=== PATIENT | female | born 1975 | race Two or more races ===

== ENCOUNTER 2016-12-31 23:37 | Inpatient (IN) | payer BC ==
[2017-01-01 01:06] LABS: Hematocrit 30 % (35-47); Hemoglobin 9.6 g/dl (12.0-16.0); Mean Corpuscular HGB Conc 32 g/dl (31-36); Mean Corpuscular Hemoglobin 24 pg (27-31); Mean Corpuscular Volume 75 fL (80-97); Mean Platelet Volume 9 um3 (7.4-10.4); Red Blood Count 3.96 10^6/ul (4.0-5.4); Red Cell Distribution Width 16 % (10.5-15); White Blood Count 13.6 10^3/ul (3.5-10.8)
[2017-01-01 01:07] LABS: Comments Flag Yes
[2017-01-01 01:11] LABS: Urine Bilirubin Negative (Negative); Urine Glucose Negative (Negative); Urine Nitrite Negative (Negative)
[2017-01-01 01:20] LABS: Albumin 3.3 g/dL (3.2-5.2); BUN/Creatinine Ratio 13.2 (8-20); EGFR African American 123.2 (>60); EGFR Non-African American 95.8 (>60); Globulin 3.5 g/dL (2-4); Potassium 4.1 mmol/L (3.5-5.0); Total Bilirubin 0.3 mg/dL (0.2-1.0); Total Protein 6.8 g/dL (6.4-8.9)
[2017-01-01] MEDS ORDERED: Sodium Citrate/Citric Acid* 15 ML UDC PO ONE (06:38)
[2017-01-01] MEDS ORDERED: ceFOXitin 2 GM IVPREMIX* 2 GM/50 ML BAG IVPB ONE (06:38)
[2017-01-01] MEDS ORDERED: Sodium Citrate/Citric Acid* 15 ML UDC ONE (06:54)
[2017-01-01] MEDS ORDERED: ceFOXitin 2 GM IVPREMIX* 2 GM/50 ML BAG ONE (06:54)
[2017-01-01] MEDS ORDERED: Morphine PF AMP (0.5MG/ML)* 5 MG/10 ML AMP ONE (07:22)
[2017-01-01] MEDS ORDERED: OXYTOCIN* 10 UNITS/ML 1 ML VIAL ONE (08:06)
[2017-01-01] MEDS ORDERED: Naloxone* 0.4 MG/ML 1 ML VIAL IV PRN (08:40)
[2017-01-01] MEDS ORDERED: Nalbuphine* 20 MG/ML 1 ML VIAL IV PRN (08:40)
[2017-01-01] MEDS ORDERED: Ondansetron INJ* 2 MG/ML VIAL IV PRN (08:40)
[2017-01-01] MEDS ORDERED: fentaNYL* 50 MCG/ML 2 ML VIAL (100 MCG VIAL) IV PRN (08:43)
[2017-01-01] MEDS ORDERED: EPHEDrine (Pressors)* 50 MG/ML VIAL ONE (08:48)
[2017-01-01] MEDS ORDERED: Acetaminophen TAB* 325 MG PO PRN (09:03)
[2017-01-01] MEDS ORDERED: OXYTOCIN* 10 UNITS/ML 1 ML VIAL IM ONE (09:03)
[2017-01-01] MEDS ORDERED: Witch Hazel PAD* JAR TOPICAL PRN (09:03)
[2017-01-01] MEDS ORDERED: Dibucaine 1% 28.35 GM TUBE PR PRN (09:03)
[2017-01-01] MEDS ORDERED: Glycerin ADULT SUPP PR PRN (09:03)
[2017-01-01] MEDS ORDERED: Zolpidem TAB* 5 MG PO PRN (09:03)
[2017-01-01] MEDS ORDERED: Tetan/Diph/Pertus SYR(Tdap)* 0.5 ML SYR(BOOSTRIX) use SYR IM ONE (10:00)
[2017-01-01] MEDS: Docusate CAP* 100 MG PO SCH ×2 (12:44→20:23)
[2017-01-01] MEDS: Simethicone CHEW TAB* 80 MG PO SCH ×3 (12:44→21:42)
[2017-01-01] MEDS: oxyCODONE/Acetamin 5/325 MG* TAB PO PRN ×2 (16:01→20:24)
[2017-01-02] MEDS: oxyCODONE/Acetamin 5/325 MG* TAB PO PRN ×6 (00:51→21:19)
--- NOTE | 2017-01-02 02:50 | OP ---
DATE OF OPERATION: 01/01/17 - ROOM #[id number]-117 DATE OF : 77 SURGEON: Dr. Morrison. HAND STRIPER SURGEON: Dr. Anthony. ANESTHESIOLOGIST: Mathieu Broderick DO ANESTHESIA: Spinal. PRE-OP DIAGNOSES: 1. Intrauterine at 39 weeks. 2. Hypertension. 3. Oligohydramnios. POST-OP DIAGNOSES: 1. Intrauterine at 39 weeks. 2. Hypertension. 3. Oligohydramnios. OPERATIVE PROCEDURE: Repeat low-traverse section. ESTIMATED BLOOD LOSS: 600 cc. URINE OUTPUT: 200 cc of clear urine. FLUIDS: She received 1700 cc of IV crystalloid fluids. FINDINGS: Delivery of a viable female infant with a weight of 8 pounds 1 ounce. Nuchal cord x1. Clear fluid. Placenta grossly intact with a 3-vessel cord noted. Uterus, adnexa, bowel and bladder were within normal limits. There were no complications. DESCRIPTION OF PROCEDURE: The patient was taken to the operating room where she was identified. She was placed on the operating room table where a spinal anesthetic was obtained without difficulty. She was placed in the supine position with a leftward tilt, prepped and dapped in a normal sterile fashion. A Pfannenstiel skin incision was made with a knife and carried through to the underlying layer of fascia. The fascia was nicked in the midline and extended laterally with curved Ly scissors. The fascia was then grasped superiorly and inferiorly with Albino clamps and dissected off sharply from the rectus muscle. The rectus muscle was in the midline bluntly. The peritoneum was identified, grasped with pickups, entered sharply with Metzenbaum scissors, and extended superiorly and inferiorly. A bladder blade was inserted into the patient's abdomen. A bladder flap was created using Metzenbaum scissors over which the bladder blade was then reinserted. A low-transverse incision was made with a knife, extended laterally with bandage scissors. Amniotic fluid was noted to be clear. The 's head was then grasped and delivered with vacuum assistance atraumatically. The nose and mouth were suctioned. The rest of the 's body was then delivered. The cord was clamped and cut. The infant was handed off to the awaiting boat engines installer. Cord bloods were obtained. The placenta was removed manually. The uterus was then exteriorized, cleared off all clot and debris using moist laparotomy sponges. The uterine incision was closed using 0 Polysorb suture in a running locked fashion with a second imbricating layer of 0 Polysorb suture. 10 units of Pitocin was injected into the uterine muscle for relief of atony. At this point, the uterus was returned to the patient's abdomen. The gutters were then cleared of all clots and debris using moist laparotomy sponges. All the sponges were removed from the patient's abdomen. The peritoneum was then closed using 3-0 Polysorb suture in a running fashion. The fascia was closed using 0 Polysorb suture in a running fashion. The skin was closed with 4-0 Monocryl in a subcuticular stitch. The patient tolerated the procedure well. Sponge, lap, needle counts were correct x2. She was then transferred to the recovery room area in stable condition. CC: Dr. Anthony.* [id number]/CPS #: [id number]
[2017-01-02 07:30] LABS: Hematocrit 23 % (35-47); Hemoglobin 7.2 g/dl (12.0-16.0); Mean Corpuscular HGB Conc 32 g/dl (31-36); Mean Corpuscular Hemoglobin 24 pg (27-31); Mean Corpuscular Volume 75 fL (80-97); Mean Platelet Volume 8 um3 (7.4-10.4); Red Blood Count 3.03 10^6/ul (4.0-5.4); Red Cell Distribution Width 16 % (10.5-15)
[2017-01-02] MEDS: Simethicone CHEW TAB* 80 MG PO SCH ×4 (09:18→21:19)
[2017-01-02] MEDS: Docusate CAP* 100 MG PO SCH ×3 (09:18→21:19)
[2017-01-02] MEDS: Ferrous Gluconate TAB* 324 MG TAB PO SCH ×2 (09:41→21:18)
[2017-01-03] MEDS: oxyCODONE/Acetamin 5/325 MG* TAB PO PRN ×6 (01:04→22:32)
[2017-01-03] MEDS: Simethicone CHEW TAB* 80 MG PO SCH ×4 (08:34→20:48)
[2017-01-03] MEDS: Ferrous Gluconate TAB* 324 MG TAB PO SCH ×2 (08:34→20:48)
[2017-01-03] MEDS: Docusate CAP* 100 MG PO SCH ×3 (08:34→20:48)
[2017-01-03] MEDS: Labetalol TAB* 100 MG PO SCH (20:48)
[2017-01-03] MEDS: Ascorbic Acid TAB* 500 MG PO SCH (21:19)
[2017-01-04] MEDS: oxyCODONE/Acetamin 5/325 MG* TAB PO PRN ×5 (06:40→23:15)
[2017-01-04] MEDS: Docusate CAP* 100 MG PO SCH ×3 (08:43→21:40)
[2017-01-04] MEDS: Labetalol TAB* 100 MG PO SCH ×2 (08:43→21:40)
[2017-01-04] MEDS: Simethicone CHEW TAB* 80 MG PO SCH ×4 (08:43→21:40)
[2017-01-04] MEDS: Ferrous Gluconate TAB* 324 MG TAB PO SCH ×2 (08:44→21:40)
[2017-01-04] MEDS: Ascorbic Acid TAB* 500 MG PO SCH ×2 (09:16→21:53)
[2017-01-05] MEDS: oxyCODONE/Acetamin 5/325 MG* TAB PO PRN ×2 (03:18→07:30)
[2017-01-05] MEDS: Docusate CAP* 100 MG PO SCH (08:12)
[2017-01-05] MEDS: Ferrous Gluconate TAB* 324 MG TAB PO SCH (08:12)
[2017-01-05] MEDS: Labetalol TAB* 100 MG PO SCH (08:12)
[2017-01-05] MEDS: Ascorbic Acid TAB* 500 MG PO SCH (08:13)
[2017-01-05] MEDS: Simethicone CHEW TAB* 80 MG PO SCH (08:13)
[2017-01-05 08:14] VITALS: BP 144/76
== END 2017-01-05 08:14 | disposition home or self-care (01) | DRG 540 ==
LOC: MCHOBOUT 23:37 → MCHOB 01-01 06:36
PROVIDERS: ADMIT Obstetrics & Gynecology; ATTEND Obstetrics & Gynecology
PROC: 10D00Z1 Extraction of Products of Conception, Low, Open Approach (ICD-10-PCS; 2017-01-01)
PROC: 4A1HXCZ Monitoring of Products of Conception, Cardiac Rate, External Approach (ICD-10-PCS; 2017-01-01)
PROC: 10907ZC Drainage of Amniotic Fluid, Therapeutic from Products of Conception, Via Natural or Artificial Opening (ICD-10-PCS; principal; 2017-01-01 07:30)
DX: O34.211 Maternal care for low transverse scar from previous cesarean delivery (principal); O41.03X0 Oligohydramnios, third trimester, not applicable or unspecified; O69.81X0 Labor and delivery complicated by cord around neck, without compression, not applicable or unspecified; O16.4 Unspecified maternal hypertension, complicating childbirth; O90.81 Anemia of the puerperium; Z3A.39 39 weeks gestation of pregnancy; Z37.0 Single live birth; O09.523 Supervision of elderly multigravida, third trimester; Z88.2 Allergy status to sulfonamides
CPT/HCPCS: 36415; 76815; 80053; 81003; 85025; 85027; 86850; 86900; 86901; A9270-GY; J0694; J2590

== ENCOUNTER 2018-05-17 09:54 | Emergency (ER) | payer BC ==
--- NOTE | 2018-05-17 10:23 | ED ---
Lower Extremity - HPI Summary HPI Summary: This is roman Nickerson documenting for attending Beau Mcallister MD. This patient is a 42 year old F presenting to [facility] with a chief complaint of right ankle injury that occurred this morning. Pt was in her OBs office hallway when she fell and twisted her right ankle. Pt fell to the floor and scraped her left knee. Pt was able to bear her own weight with some pain directly following the fall. The patient rates the pain 5/10 in severity. Symptoms aggravated by movement. Symptoms alleviated by resting the ankle. Patient reports left knee abrasion. Patient denies problems bearing her own weight. Pt is 3 months with no current complications. - History of Current Complaint Chief Complaint: EDExtremityLower Stated Complaint: FALL/RT ANKLE INJURY Time Seen by Provider: 05/17/18 10:11 Hx Obtained From: Patient Hx Last Menstrual Period: less than a month a go. Mechanism Of Injury: Fall From A Standing Position Onset of Pain: Immediate Onset/Duration: Hours - this morning Severity Initially: Moderate Severity Currently: Moderate Pain Intensity: 5 Pain Scale Used: 0-10 Numeric Timing: Constant Location: Is Discrete @ - right ankle Character Of Pain: Sharp Associated Signs And Symptoms: Positive: Swelling - minimal, Knee Pain - left knee abrasion. Negative: Bruising Aggravating Factor(s): Ambulation, Movement, Weight Bearing - Allergies/Home Medications Allergies/Adverse Reactions: Allergies Allergy/AdvReac Type Severity Reaction Status Date / Time Sulfa (Sulfonamide Allergy Rash Verified 05/17/18 10:12 Antibiotics) Home Medications: Home Medications Labetalol TAB* [Trandate TAB*] 200 mg PO BID 05/17/18 [History Confirmed ] PMH/Surg Hx/FS Hx/Imm Hx Endocrine/Hematology History: Reports: Hx Thyroid Disease - Hypothyroid per Dr Barclay Denies: Hx Diabetes Cardiovascular History: Reports: Hx Hypertension - on labetalol Respiratory History: Denies: Hx Asthma, Hx Chronic Obstructive Pulmonary Disease (COPD) GI History: Denies: Hx Ulcer History: Reports: Other Problems/Disorders - vulvar lichen sclerosis, ureteral reflux, ureteral surgery - Surgical History Surgery Procedure, Year, and Place: Ureter surgery 1999, stretched and lowere ureters in bladder, C [id number] - Immunization History Immunizations Up to Date: Yes Infectious Disease History: No Infectious Disease History: Denies: Hx Clostridium Difficile, Hx Hepatitis, Hx Human Immunodeficiency Virus (HIV), Hx of Known/Suspected MRSA, Hx Shingles, Hx Tuberculosis, Hx Known/ Suspected VRE, Hx Known/Suspected VRSA, History Other Infectious Disease, Traveled Outside the [place] in Last 30 Days - Family History Known Family History: Positive: Cardiac Disease, Hypertension, Diabetes - Social History Alcohol Use: None Substance Use Type: Reports: None Smoking Status (MU): Former Smoker Review of Systems Negative: Fever Positive: Edema - minimal, rt knee, Other - right ankle pain Positive: Other - abrasion left knee Negative: Slurred Speech All Other Systems Reviewed And Are Negative: Yes Physical Exam - Summary Physical Exam Summary: Appearance: Well-appearing, Well-nourished, lying in bed comfortable Skin: Warm, dry, no obvious rash. No ecchymosis. Eyes: sclera anicteric, no conjunctival pallor. ENT: mucous membranes moist Neck: deferred Respiratory: No signs of respiratory distress Cardiovascular: Appears well perfused, pulses are nml Abdomen: deferred Right ankle: no malleoli tenderness. No tenderness 5th metatarsal. Mild tenderness to the anterior ankle ligaments. Minimal swelling. Musculoskeletal: Left knee small abrasion. Neurological: Awake and alert, mentation is normal, speech is fluent and appropriate Psychiatric: affect is normal, does not appear anxious or depressed Triage Information Reviewed: Yes Vital Signs On Initial Exam: Initial Vitals Temp Pulse Resp BP Pulse Ox 98.3 F 78 18 143/99 98 05/17/18 09:57 05/17/18 09:57 05/17/18 09:57 05/17/18 09:57 05/17/18 09:57 Vital Signs Reviewed: Yes Diagnostics - Vital Signs Vital Signs Temp Pulse Resp BP Pulse Ox 05/17/18 09:57 98.3 F 78 18 143/99 98 - Laboratory Lab Statement: Any lab studies that have been ordered have been reviewed, and results considered in the medical decision making process. Lower Extremity Course/Dx - Course Course Of Treatment: This is a 42-year-old multiparous woman at approximately 12 weeks gestation who stumbled and fell, injuring the right ankle and left knee. The left knee injury is very small, just a small abrasion area the patient is able to bear weight and passes [place] ankle rules for avoiding imaging. Given that she is I would like to try to avoid imaging in this situation and explained all this to the patient, and she is in agreement. - Diagnoses Provider Diagnoses: Right ankle sprain, Abrasion of left knee Discharge - Sign-Out/Discharge Documenting (check all that apply): Patient Departure - Discharge Plan Condition: Good Disposition: HOME Patient Education Materials: Ankle Sprain (ED) Referrals: Lorene Moralez MD [Primary Care Provider] - Sofia Castano MD [Medical Doctor] - If Needed - Billing Disposition and Condition Condition: GOOD Disposition: Home
[2018-05-17 11:05] VITALS: BP 128/88
== END 2018-05-17 11:04 | disposition home or self-care (01) ==
LOC: ED 09:54
DX: O9A.211 Injury, poisoning and certain other consequences of external causes complicating pregnancy, first trimester (principal); S93.401A Sprain of unspecified ligament of right ankle, initial encounter; S80.212A Abrasion, left knee, initial encounter; X50.1XXA Overexertion from prolonged static or awkward postures, initial encounter; W19.XXXA Unspecified fall, initial encounter; Y92.531 Health care provider office as the place of occurrence of the external cause; O16.1 Unspecified maternal hypertension, first trimester; Z3A.12 12 weeks gestation of pregnancy; Z79.899 Other long term (current) drug therapy; Z87.891 Personal history of nicotine dependence; Z88.2 Allergy status to sulfonamides
CPT/HCPCS: 99282

== ENCOUNTER 2018-10-14 10:21 | Emergency (ER) | payer BC ==
--- NOTE | 2018-10-14 12:39 | ED ---
Throat Pain/Nasal Congestion - HPI Summary HPI Summary: Patient is a 42-year-old female presenting to the ED with left lower jaw pain and swelling. She denies any fevers, sweats, chills. She states she has been immunocompromised as she has had IV antibiotics over the past several weeks due to a abdominal infection. She has not been on these antibiotics for at least 2 weeks. She states she has had this lower jaw pain times approximately 1 week with minor medicine swelling. Endorses odynophagia dysphagia, however is able to eat and drink well. She is also endorsing some RUQ pain which is very mild rating it a 1/10, and intermittent since arrival to the ED. Denies any nausea, vomiting, diarrhea. She has had multiple UTIs in the past and also would like a urinalysis today. - History of Current Complaint Chief Complaint: EDAbdPain Time Seen by Provider: 10/14/18 10:44 Hx Obtained From: Patient Onset/Duration: Sudden Onset Severity: Moderate Associated Signs And Symptoms: Positive: Dysphagia - Epiglottits Risk Factors Epiglottis Risk Factors: Negative - Allergies/Home Medications Allergies/Adverse Reactions: Allergies Allergy/AdvReac Type Severity Reaction Status Date / Time Sulfa (Sulfonamide Allergy Rash Verified 10/14/18 11:16 Antibiotics) PMH/Surg Hx/FS Hx/Imm Hx Previously Healthy: Yes Endocrine/Hematology History: Reports: Hx Thyroid Disease - Hypothyroid per Dr Barclay Denies: Hx Diabetes Cardiovascular History: Reports: Hx Hypertension - on labetalol Respiratory History: Denies: Hx Asthma, Hx Chronic Obstructive Pulmonary Disease (COPD) GI History: Denies: Hx Ulcer History: Reports: Other Problems/Disorders - vulvar lichen sclerosis, ureteral reflux, ureteral surgery - Surgical History Surgery Procedure, Year, and Place: Ureter surgery 1999, stretched and lowere ureters in bladder, C [id number] - Immunization History Hx Pertussis Vaccination: No Immunizations Up to Date: Yes Infectious Disease History: No Infectious Disease History: Denies: Hx Clostridium Difficile, Hx Hepatitis, Hx Human Immunodeficiency Virus (HIV), Hx of Known/Suspected MRSA, Hx Shingles, Hx Tuberculosis, Hx Known/ Suspected VRE, Hx Known/Suspected VRSA, History Other Infectious Disease, Traveled Outside the [place] in Last 30 Days - Family History Known Family History: Positive: Cardiac Disease, Hypertension, Diabetes - Social History Occupation: Unemployed Lives: With Family Alcohol Use: Weekly Alcohol Amount: 1/2 weekly Hx Substance Use: No Substance Use Type: Reports: None Hx Tobacco Use: Yes Smoking Status (MU): Former Smoker Review of Systems Constitutional: Negative Negative: Fever, Chills, Fatigue, Skin Diaphoresis Negative: Photophobia, Blurred Vision, Diplopia, Drainage Positive: Sore Throat, Ear Ache Negative: Palpitations, Chest Pain Negative: Shortness Of Breath, Cough Positive: Abdominal Pain. Negative: Vomiting, Diarrhea, Nausea Genitourinary: Negative Positive: no symptoms reported, see HPI Negative: Arthralgia, Myalgia Skin: Negative All Other Systems Reviewed And Are Negative: Yes Physical Exam Triage Information Reviewed: Yes Vital Signs On Initial Exam: Initial Vitals Temp Pulse Resp BP Pulse Ox 97.5 F 75 16 159/108 97 10/14/18 10:23 10/14/18 10:23 10/14/18 10:23 10/14/18 10:23 10/14/18 10:23 Vital Signs Reviewed: Yes Appearance: Positive: Well-Appearing, Well-Nourished Skin: Positive: Warm, Skin Color Reflects Adequate Perfusion Head/Face: Positive: Normal Head/Face Inspection Eyes: Positive: EOMI, MAGDA, Conjunctiva Clear ENT: Positive: Pharynx normal, TMs normal, Dental tenderness - left lower mandible, Uvula midline. Negative: Pharyngeal erythema, Nasal congestion, Nasal drainage, Tonsillar swelling, Tonsillar exudate, Sinus tenderness Neck: Positive: Supple, No Lymphadenopathy Respiratory/Lung Sounds: Positive: Clear to Auscultation, Breath Sounds Present Cardiovascular: Positive: RRR, Pulses are Symmetrical in both Upper and Lower Extremities Musculoskeletal: Positive: Normal, Strength/ROM Intact Neurological: Positive: Speech Normal Psychiatric: Positive: Affect/Mood Appropriate Diagnostics - Vital Signs Vital Signs Temp Pulse Resp BP Pulse Ox 10/14/18 10:23 97.5 F 75 16 159/108 97 - Laboratory Lab Statement: Any lab studies that have been ordered have been reviewed, and results considered in the medical decision making process. EENT Course/Dx - Course Course Of Treatment: UA obtained. Strep obtained. UA positive come UTI. Strep negative. She will be sent home with Keflex to treat possible dental infection and UTI. - Diagnoses Provider Diagnoses: Dental infection, UTI (urinary tract infection) Discharge - Sign-Out/Discharge Documenting (check all that apply): Patient Departure - Discharge Plan Condition: Stable Disposition: HOME Prescriptions: Cephalexin CAP* [Keflex CAP*] 500 mg PO BID #10 cap MDD 2 Patient Education Materials: Urinary Tract Infection in Women (ED), Toothache ( ED) Referrals: Lorene Moralez MD [Primary Care Provider] - Additional Instructions: Please follow up with dentist Keflex twice daily x 5 days for UTI and dental infection - Billing Disposition and Condition Condition: STABLE Disposition: Home
[2018-10-14 12:44] LABS: Urine Appearance Clear; Urine Bacteria Absent (Absent); Urine Bilirubin Negative (Negative); Urine Blood 3+ (Negative); Urine Color Straw; Urine Glucose Negative (Negative); Urine Ketones Negative (Negative); Urine Nitrite Negative (Negative); Urine Protein Negative (Negative); Urine Red Blood Cell 1+(3-5/hpf) (Absent); Urine Specific Gravity 1.004 (1.010-1.030); Urine Urobilinogen Negative (Negative); Urine White Blood Cell 2+(11-20/hpf) (Absent)
[2018-10-14 13:34] VITALS: BP 151/108
--- NOTE | 2018-10-16 05:38 | PN ---
Progress Note - Progress Note Date of Service: 10/16/18 Note: urine grew Enterococcus faecalis 75-100,000. patient placed on keflex will wait for final culture for sensitivities.
--- NOTE | 2018-10-17 05:56 | PN ---
Progress Note - Progress Note Date of Service: 10/17/18 Note: patient placed on keflex which final culture should be sensitive to. no further action required.
== END 2018-10-14 13:33 | disposition home or self-care (01) ==
LOC: ED 10:21
DX: K08.9 Disorder of teeth and supporting structures, unspecified (principal); N39.0 Urinary tract infection, site not specified; B95.2 Enterococcus as the cause of diseases classified elsewhere; E03.9 Hypothyroidism, unspecified; I10 Essential (primary) hypertension; Z87.891 Personal history of nicotine dependence
CPT/HCPCS: 81003; 81015; 87077; 87086; 87186; 87651; 99282

== ENCOUNTER → 2018-11-28 15:31 | Emergency (ER) | payer BC ==
[~2018-11-28 15:31] MED LIST: traMADol TAB* 50 MG PO ONE
--- NOTE | 2018-11-28 16:59 | ED ---
Throat Pain/Nasal Congestion - HPI Summary HPI Summary: Patient is an otherwise healthy 42-year-old female presenting to the ED with right ear pain. She states she's been sick over the past week with flulike symptoms of body aches, cough and congestion. She developed right ear pain acute onset at approximately 1 PM this afternoon. She states his pain is constant, 10/10, and throbbing. She also endorses pain to the right side of the jaw and neck. Denies any pain behind the ear. Denies tinnitus. Endorses intermittent hearing loss in the right ear since 1 PM. Denies any fevers, sweats, chills. She denies any current photophobia or posterior neck pain. She denies any neck stiffness. Denies any erythema or warmth around the ear or in the ear canal. She states she had a hx of ear infections (most recently 2.5 years ago when .) Currently breast feeding. - History of Current Complaint Chief Complaint: EDEarPain Time Seen by Provider: 11/28/18 16:23 Hx Obtained From: Patient Onset/Duration: Sudden Onset Severity: Moderate Associated Signs And Symptoms: Negative: Dysphagia, FB Sensation, Drooling, Wheezing, Hoarseness - Epiglottits Risk Factors Epiglottis Risk Factors: Negative - Allergies/Home Medications Allergies/Adverse Reactions: Allergies Allergy/AdvReac Type Severity Reaction Status Date / Time Sulfa (Sulfonamide Allergy Rash Verified 10/14/18 11:16 Antibiotics) PMH/Surg Hx/FS Hx/Imm Hx Previously Healthy: Yes Endocrine/Hematology History: Reports: Hx Thyroid Disease - Hypothyroid per Dr Barclay Denies: Hx Diabetes Cardiovascular History: Reports: Hx Hypertension - on labetalol Respiratory History: Denies: Hx Asthma, Hx Chronic Obstructive Pulmonary Disease (COPD) GI History: Denies: Hx Ulcer History: Reports: Other Problems/Disorders - vulvar lichen sclerosis, ureteral reflux, ureteral surgery - Surgical History Surgery Procedure, Year, and Place: Ureter surgery 1999, stretched and lowere ureters in bladder, C [id number] - Immunization History Hx Pertussis Vaccination: No Immunizations Up to Date: Yes Infectious Disease History: No Infectious Disease History: Denies: Hx Clostridium Difficile, Hx Hepatitis, Hx Human Immunodeficiency Virus (HIV), Hx of Known/Suspected MRSA, Hx Shingles, Hx Tuberculosis, Hx Known/ Suspected VRE, Hx Known/Suspected VRSA, History Other Infectious Disease, Traveled Outside the [place] in Last 30 Days - Family History Known Family History: Positive: Cardiac Disease, Hypertension, Diabetes - Social History Occupation: Unemployed Lives: With Family Alcohol Use: Weekly Alcohol Amount: 1/2 weekly Hx Substance Use: No Substance Use Type: Reports: None Hx Tobacco Use: Yes Smoking Status (MU): Former Smoker Review of Systems Negative: Fever, Chills, Fatigue, Skin Diaphoresis Positive: Ear Ache - right only Negative: Palpitations, Chest Pain Negative: Shortness Of Breath, Cough Genitourinary: Negative Positive: no symptoms reported, see HPI Negative: Arthralgia, Myalgia Skin: Negative Neurological: Negative All Other Systems Reviewed And Are Negative: Yes Physical Exam Triage Information Reviewed: Yes Vital Signs On Initial Exam: Initial Vitals Temp Pulse Resp BP Pulse Ox 98.9 F 86 18 173/113 100 11/28/18 15:44 11/28/18 15:44 11/28/18 15:44 11/28/18 15:44 11/28/18 15:44 Vital Signs Reviewed: Yes Appearance: Positive: Well-Nourished, Pain Distress Skin: Positive: Skin Color Reflects Adequate Perfusion Head/Face: Positive: Normal Head/Face Inspection. Negative: Temporal Artery Tenderness, TMJ Tenderness, Scalp, Cephalohematoma Eyes: Positive: EOMI, MAGDA, Conjunctiva Inflammed ENT: Positive: TM red. Negative: Pharyngeal erythema, TMs normal, TM bulging, TM dull, Tonsillar swelling, Tonsillar exudate, Dental tenderness, Sinus tenderness Neck: Positive: Supple, Nontender, Enlarged Nodes @ - right cervical anterior Respiratory/Lung Sounds: Positive: Clear to Auscultation, Breath Sounds Present Cardiovascular: Positive: RRR, Pulses are Symmetrical in both Upper and Lower Extremities Musculoskeletal: Positive: Normal, Strength/ROM Intact Neurological: Positive: Sensory/Motor Intact, Alert, Oriented to Person Place, Time, Speech Normal Psychiatric: Positive: Normal, Affect/Mood Appropriate Diagnostics - Vital Signs Vital Signs Temp Pulse Resp BP Pulse Ox 11/28/18 15:44 98.9 F 86 18 173/113 100 - Laboratory Lab Statement: Any lab studies that have been ordered have been reviewed, and results considered in the medical decision making process. EENT Course/Dx - Course Course Of Treatment: Course treatment the patient's evaluated for right ear pain. On physical examination, there is no tenderness to the mastoid area. No erythema or warmth surrounding the ear. No neck stiffness, Kernig's and Brudzinski's normal. Ear canal erythematous without pus pocket or drainage. No evidence of fluid collections. This appears to be a possible otitis media, without otitis externa. Patient denies any photophobia. Denies any visual changes or disturbances. She will be dc'd home with abx and pain control. She understands she is unable to take this pain control while breast feeding. She voice understanding. Tramadol given to her in the ED. - Diagnoses Provider Diagnoses: Earache, Otitis media Discharge - Sign-Out/Discharge Documenting (check all that apply): Patient Departure Patient Received Moderate/Deep Sedation with Procedure: No - Discharge Plan Condition: Stable Disposition: HOME Prescriptions: Amoxicillin/Clavulanate TAB* [Augmentin TAB 875*] 875 mg PO BID #10 tab traMADol TAB* [Ultram*] 50 mg PO Q8H PRN #12 tab MDD 3 PRN Reason: Pain Patient Education Materials: Ear Infection (ED) Referrals: Lorene Moralez MD [Primary Care Provider] - Additional Instructions: Augmentin twice daily 5 days Ibuprofen 600 mg 3 times daily and Tylenol 650 mg 3 times daily for symptoms not well controlled with ibuprofen and Tylenol you may take the tramadol Tramadol up to 3 times daily as needed for pain - Billing Disposition and Condition Condition: STABLE Disposition: Home
[2018-11-28 17:18] VITALS: BP 156/77
== END | disposition home or self-care (01) ==
LOC: ED 15:31
DX: H66.91 Otitis media, unspecified, right ear (principal); H92.01 Otalgia, right ear; Z88.2 Allergy status to sulfonamides; Z87.891 Personal history of nicotine dependence
CPT/HCPCS: 99282; A9270-GY